=== PATIENT | male | born 1985 | race Caucasian/White ===

== ENCOUNTER 2016-09-11 22:49 | Emergency (ER) | payer MEDICAID | END 2016-09-12 01:56 | disposition home or self-care (01) | LOC: D.ER 22:49 | DX: M19.90 Unspecified osteoarthritis, unspecified site (principal); G89.29 Other chronic pain; I10 Essential (primary) hypertension; F43.10 Post-traumatic stress disorder, unspecified; F17.200 Nicotine dependence, unspecified, uncomplicated ==

== ENCOUNTER 2017-01-31 10:21 | Inpatient (IN) | payer MEDICAID ==
[~2017-01-31] VITALS: Ht 195.6 cm; Wt 184.5 kg
[2017-01-31 11:00] LABS: BASOPHILS 0.4 % (0-2); EOSINOPHILS 0.6 % (0-7); HEMATOCRIT 43.7 % (42.0-54.0); HEMOGLOBIN 14.8 g/dL (13.5-17.5); IMMATURE GRANULOCYTES 0.4 % (0-5); LYMPHOCYTES 11.7 % (15-50); MCH 31.8 pg (26.0-34.0); MCHC 33.9 g/dL (31.0-37.0); MCV 93.8 fL (80.0-100.0); MEAN PLATELET VOLUME 11.3 fL (7.4-10.4); MONOCYTES 7.1 % (2-11); NEUTROPHILS 79.8 % (40-80); PLATELET COUNT 177 10x3/uL (130-400); RBC 4.66 10x6/uL (4.20-6.10); RDW 13.5 % (11.5-14.5); WBC 8.1 10x3/uL (4.8-10.8)
[2017-01-31 11:22] LABS: ALBUMIN 3.3 g/dL (3.4-5.0); ANION GAP 14.8 mmol/L (8-16); BILIRUBIN - TOTAL 0.75 mg/dL (0.2-1.3); CALCIUM 8.8 mg/dL (8.5-10.1); CARBON DIOXIDE 24.5 mmol/L (21.0-32.0); CREATININE - SERUM 2.7 mg/dL (0.6-1.3); MAGNESIUM - SERUM 1.6 mg/dL (1.8-2.4); POTASSIUM - SERUM 4.3 mmol/L (3.5-5.1); PROTEIN - SERUM 6.6 g/dL (6.4-8.2)
[2017-01-31] MEDS ORDERED: MINIPRESS 5 MG C5 MG PO (14:20)
[2017-01-31] MEDS ORDERED: NEURONTIN600 MG PO (14:22)
[2017-01-31] MEDS ORDERED: LEXAPRO20 MG PO (14:23)
[2017-01-31] MEDS ORDERED: LISINOPRIL-HCTZ1 T13 PO (14:24)
[2017-01-31] MEDS ORDERED: THORAZINE25 MG PO (14:25)
[2017-01-31] MEDS ORDERED: GLIMEPIRIDE4 MG PO (14:26)
[2017-01-31] MEDS ORDERED: GLUCOPHAGE500 MG PO (14:27)
[2017-01-31 14:29] VITALS: BP 137/68; Ht 195.6 cm; Wt 184.5 kg
[2017-01-31 14:34] LABS: POTASSIUM - SERUM 3.5 mmol/L (3.5-5.1)
--- NOTE | 2017-01-31 14:57 | NUR ---
PT AOX4 RESP EVEN AND NONLABORED IV TO LEFT HAND PATENT AND INTACT PT DENIES NEEDS AT THIS TIME SRX2 BED AT LOWEST SETTING CALL LIGHT WITHIN REACH WILL CONTINUE TO MONITOR
[2017-01-31 15:23] LABS: HEMOGLOBIN A1C 11.6 % (4.8-6.0)
[2017-01-31 16:52] VITALS: BP 158/77
[2017-01-31 19:00] VITALS: BP 116/50
--- NOTE | 2017-02-01 02:00 | NUR ---
PT IN BED WITH NO DISTRESS AT THIS TIME. RESPIRATIONS ARE EVEN AND UNLABORED. SIDE RAILS X 2. BED IS LOW. CALL LIGHT IN REACH.
[2017-02-01 04:00] VITALS: BP 106/54
[2017-02-01 05:51] LABS: BASOPHILS 0.3 % (0-2); EOSINOPHILS 1.1 % (0-7); HEMOGLOBIN 13.4 g/dL (13.5-17.5); IMMATURE GRANULOCYTES 0.2 % (0-5); LYMPHOCYTES 15.9 % (15-50); MCH 31.8 pg (26.0-34.0); MCHC 34.4 g/dL (31.0-37.0); MCV 92.6 fL (80.0-100.0); MEAN PLATELET VOLUME 11.1 fL (7.4-10.4); MONOCYTES 10.3 % (2-11); NEUTROPHILS 72.2 % (40-80); PLATELET COUNT 179 10x3/uL (130-400); RBC 4.21 10x6/uL (4.20-6.10); RDW 13.5 % (11.5-14.5)
[2017-02-01 05:56] LABS: WBC 11.1 10x3/uL (4.8-10.8)
[2017-02-01 06:08] LABS: KETONE - SERUM NEGATIVE (NEGATIVE)
[2017-02-01 06:19] LABS: ALBUMIN 2.8 g/dL (3.4-5.0); ALKALINE PHOSPHATASE 53 U/L (46-116); ALT (SGPT) 72 U/L (10-68); CALCIUM 8.1 mg/dL (8.5-10.1); CARBON DIOXIDE 26.6 mmol/L (21.0-32.0); CHLORIDE - SERUM 97 mmol/L (98-107); CHOL - HDL RATIO 6.4 ratio (2.3-4.9); CHOLESTEROL, TOTAL 180 mg/dL (0-200); HDL CHOLESTEROL 28 mg/dL (32-96); POTASSIUM - SERUM 3.4 mmol/L (3.5-5.1); PROTEIN - SERUM 5.8 g/dL (6.4-8.2); SODIUM 131 mmol/L (136-145); UREA NITROGEN 17 mg/dL (7-18)
[2017-02-01 06:36] LABS: CALC OSMOLALITY 280 mosm/kg (275-300); GLUCOSE 378 mg/dL (74-106); TRIGLYCERIDE 717 mg/dL (30-200); eGFR NON AFRICAN AMERICAN 41 mL/min (90-120)
--- NOTE | 2017-02-01 07:45 | NUR ---
BED LOWEST POSITION, CALL LIGHTIN REACH, WILL CONTINUE TO MONITOR, DENIES NEEDS
[2017-02-01 08:27] VITALS: BP 105/63
--- NOTE | 2017-02-01 08:35 | NUR ---
ALERT IN HIGH ELIZABETH POSITION. NO SIGNS OF DISTRESS NOTED. NO NEEDS VOICED. SIDE RAILS UP X2. BED IN LOW POSITION. CALL LIGHT IN REACH.
[2017-02-01 11:39] VITALS: BP 118/56
--- NOTE | 2017-02-01 13:36 | NUR ---
NUTRITION MONITORING & EVAL PROVIDED PT WITH DM DIET EDU. DISCUSSED PORTION SIZES, LABEL READING, CHECKING BLOOD SUGAR. ANSWERED PT QUESTIONS. RD FOLLOWING
--- NOTE | 2017-02-01 13:50 | NUR ---
Patient Name: MC KEARNS Admission Status: ER Accout number: [id number] Admission Date: 02-01-2017 : 1985 Admission Diagnosis: Attending: MARKO Current LOS: 1 Anticipated DC Date: 02-03-2017 Planned Disposition: Home with Home Health Primary Insurance: [place] [employer] [facility] Discharge Planning Comments: CM MET WITH PATIENT REGARDING D/C NEEDS AND PLANS. PATIENT STATED HE LIVES ALONE AND HIS BROTHER CHECKS ON HIM AND HELPS IF NEEDED. PATIENT STATED HE HAS NO STEPS OR STAIRS AT HIS HOME. PATIENT IS INDEPENDENT WITH HIS CARE AND HAS A SHOWER CHAIR, WALKER, AND NEBULIZER AT HOME. PATIENT HAS BEEN GOING TO [facility] SEEING MARIE [facility]. PATIENT USES [facility] ON [address] PATIENT CHOSE [facility] DEPENDING ON HIS INSURANCE BEING ACCEPTED. CM WILL CONTINUE TO FOLLOW PATIENT WITH D/C NEEDS AND PLANS. PCP [facility] [address] - [phone] JUVE (BROTHER) [phone] Natural Resources Engineer: Dotty Cuellar Is the patient Alert and Oriented? Yes 0 * How many steps to enter\exit or inside your home? 0 0 * PCP [facility] 0 * Pharmacy [facility] [address] 0 * Preadmission Environment Home Alone 0 * ADLs Independent 0 * Equipment Nebulizer Shower Chair Walker 0 * List name and contact numbers for known caregivers / representatives who currently or will assist patient after discharge: JUVE KEARNS (BROTHER) [phone] 0 * Community resources currently utilized None 0 * Additional services required to return to the preadmission environment? Yes 0 * Can the patient safely return to the preadmission environment? Yes 0 * Has this patient been hospitalized within the prior 30 days at any hospital? No 0 Grand Total: 0
[2017-02-01 16:13] VITALS: BP 136/65
[2017-02-01 18:00] VITALS: BP 139/67
--- NOTE | 2017-02-01 23:09 | NUR ---
REC'D PATIENT ASLEEP IN BED. NO DISTRESS NOTED. WILL CONT TO MONITOR THROUGHOUT THE NIGHT. WILL ADMIN PM MEDS PRESCRIBED. BED LOW, LOCKED, CALL LIGHT IN REACH.
--- NOTE | 2017-02-01 23:10 | NUR ---
ADMIN PM MEDS PRECRIBED. ALERT AND ORIENTED X4. IS ASKING FOR SOME JELLO. DENIED PAIN AT THIS TIME. TAUGHT PATIENT ON WHEN TO CHECK HIS BLOOD SURGAR AT HOME. VERBALIZED UNDERSTANDING. WILL CONT TO TEACH ABT DIABETES THROUGHOUT THE NIGHT.
[2017-02-02 04:00] VITALS: BP 118/64
[2017-02-02 05:05] LABS: BASOPHILS 0.6 % (0-2); EOSINOPHILS 2.1 % (0-7); HEMATOCRIT 41.8 % (42.0-54.0); HEMOGLOBIN 14.2 g/dL (13.5-17.5); IMMATURE GRANULOCYTES 1.2 % (0-5); LYMPHOCYTES 31.1 % (15-50); MCH 31.3 pg (26.0-34.0); MCV 92.1 fL (80.0-100.0); MEAN PLATELET VOLUME 10.9 fL (7.4-10.4); MONOCYTES 10.2 % (2-11); NEUTROPHILS 54.8 % (40-80); PLATELET COUNT 181 10x3/uL (130-400); RBC 4.54 10x6/uL (4.20-6.10); RDW 13.3 % (11.5-14.5)
[2017-02-02 05:07] LABS: WBC 6.8 10x3/uL (4.8-10.8)
[2017-02-02 05:42] LABS: ALBUMIN 2.9 g/dL (3.4-5.0); ALKALINE PHOSPHATASE 52 U/L (46-116); BILIRUBIN - TOTAL 0.92 mg/dL (0.2-1.3); CARBON DIOXIDE 30.4 mmol/L (21.0-32.0); CHLORIDE - SERUM 99 mmol/L (98-107); POTASSIUM - SERUM 3.2 mmol/L (3.5-5.1); PROTEIN - SERUM 6.6 g/dL (6.4-8.2); SODIUM 136 mmol/L (136-145)
[2017-02-02 05:45] LABS: ALT (SGPT) 91 U/L (10-68); CALC OSMOLALITY 281 mosm/kg (275-300); CREATININE - SERUM 1.1 mg/dL (0.6-1.3); GLUCOSE 277 mg/dL (74-106); UREA NITROGEN 12 mg/dL (7-18); eGFR NON AFRICAN AMERICAN 82 mL/min (90-120)
--- NOTE | 2017-02-02 08:00 | NUR ---
WAS ABLE TO TAKE OWN BS THIS AM WITH VERBAL CUEING. TREATED WITH REGULAR INSULIN WHICH HE INJECTED HIMSELF WITH VERBAL CUEING.
--- NOTE | 2017-02-02 08:00 | NUR ---
AWAKE AND ALERT. ORIENTED X3. NO C/O AT THIS TIME. LUNGS ARE CLEAR BILATERALLY, NO COUGH NOTED. SKIN IS INTACT WITHOUT REDNESS. IV TO LEFT HAND IS PATENT WITHOUT REDNESS AT INSERTION SITE. DENIES NEEDS.
[2017-02-02 08:48] VITALS: BP 93/48
--- NOTE | 2017-02-02 11:03 | NUR ---
RESTING QUIETLY IN BED. DENIES NEEDS.
--- NOTE | 2017-02-02 12:32 | NUR ---
WAS ABLE TO CHECK HIS OWN SUGAR AND GIVE INSULIN WITH VERBAL CUEING. IV RESITED TO RIGHT UPPER ARM AFTER 2 ATTEMPTS WITH 22G. OLD IV D/C WITH CATHETER INTACT.
[2017-02-02 12:35] VITALS: BP 105/51
--- NOTE | 2017-02-02 16:30 | NUR ---
WAS ABLE TO DO OWN BLOOD SUGAR AND GAVE SELF SS INSULIN. DID WELL WITH ONLY ONE VERBAL CUE FROM STAFF.
[2017-02-02 17:02] VITALS: BP 114/66
--- NOTE | 2017-02-02 19:23 | NUR ---
ATE ALMOST ALL OF SUPPER. DENIES NEEDS. REQUESTED AND GIVNE ONE HYDROCODONE PO FOR C/O BACK AND RIGHT KNEE PAIN LEVEL 8. WILL MONITOR.
--- NOTE | 2017-02-02 20:30 | NUR ---
AWAKE WATCHING TV QUIETLY. NO COMPLAINTS VOICED.INSULIN ADMINSTATION TEACHING IN PROGRESS.CL IN REACH
[2017-02-03 00:04] VITALS: BP 113/56
--- NOTE | 2017-02-03 02:00 | NUR ---
PT IN BED WITH NO DISTRESS. RESPIRATIONS EVEN AND UNLABORED. SIDE RAILS X 2. BED LOW. CALL LIGHT IN REACH.
--- NOTE | 2017-02-03 02:38 | NUR ---
RESTING QUIETLY. NO DISTRESS NOTED. CL IN REACH.
[2017-02-03 04:00] VITALS: BP 150/69
--- NOTE | 2017-02-03 04:46 | NUR ---
AWAKE WITH NO COMPLAINTS. NO CHANGE IN ASSESSMENT.
[2017-02-03 06:04] LABS: BASOPHILS 0.6 % (0-2); HEMATOCRIT 40.5 % (42.0-54.0); HEMOGLOBIN 13.8 g/dL (13.5-17.5); IMMATURE GRANULOCYTES 0.6 % (0-5); LYMPHOCYTES 33.3 % (15-50); MCH 31.6 pg (26.0-34.0); MCHC 34.1 g/dL (31.0-37.0); MCV 92.7 fL (80.0-100.0); MEAN PLATELET VOLUME 10.9 fL (7.4-10.4); MONOCYTES 11.6 % (2-11); NEUTROPHILS 50.9 % (40-80); PLATELET COUNT 186 10x3/uL (130-400); RBC 4.37 10x6/uL (4.20-6.10); RDW 13.2 % (11.5-14.5); WBC 5.3 10x3/uL (4.8-10.8)
[2017-02-03 06:37] LABS: ALBUMIN 2.9 g/dL (3.4-5.0); ALKALINE PHOSPHATASE 51 U/L (46-116); BILIRUBIN - TOTAL 0.85 mg/dL (0.2-1.3); CARBON DIOXIDE 30.2 mmol/L (21.0-32.0); CHLORIDE - SERUM 99 mmol/L (98-107); POTASSIUM - SERUM 3.3 mmol/L (3.5-5.1); PROTEIN - SERUM 6.5 g/dL (6.4-8.2); SODIUM 137 mmol/L (136-145); THYROID STIMULATING HORMONE 1.56 uIU/mL (0.36-3.74); UREA NITROGEN 11 mg/dL (7-18); eGFR NON AFRICAN AMERICAN > 90 mL/min (90-120)
[2017-02-03 06:38] LABS: ALT (SGPT) 114 U/L (10-68); CALC OSMOLALITY 277 mosm/kg (275-300); GLUCOSE 196 mg/dL (74-106)
--- NOTE | 2017-02-03 08:14 | NUR ---
AWAKE AND ALERT. DID FS AND GAVE INSULIN PER SELF. NEEDED NO VERBAL CUES FROM STAFF. LUNGS ARE CLEAR BILATERALLY, NO COUGH NOTED. SKIN IS INTACT WITHOUT REDNESS. IV TO RIGHT UPPER ARM IS PATNET WITHOUT REDNESS AT INSERTION SITE. DENIES NEEDS. BREAKFAST SERVED IN ROOM.
[2017-02-03 08:39] VITALS: BP 119/82
--- NOTE | 2017-02-03 10:00 | NUR ---
UP TO SHOWER WITH SET UP ASSISTANCE. DENIES NEEDS.
--- NOTE | 2017-02-03 10:47 | NUR ---
REQUESTED AND GIVEN ONE HYDROCODONE PO FOR C/O BACK PAIN LEVEL 8. WILL MONITOR.
[2017-02-03] MEDS ORDERED: LANTUS INSULIN10 ML SC (11:23)
[2017-02-03] MEDS ORDERED: JANUVIA100 MG PO (11:24)
--- NOTE | 2017-02-03 12:00 | NUR ---
PULLED IV OUT WHILE IN THE SHOWER WITH CATHETER INTACT.
--- NOTE | 2017-02-03 13:25 | NUR ---
CM REASSESSMENT NOTE: PATIENT IS DISCHARGING HOME TODAY ([facility]) IS DRIVING HIM HOME. [facility] WAS NOTIFIED OF DISCHARGE
--- NOTE | 2017-02-03 14:26 | NUR ---
DISCHARGED TO HOME WITH FAMILY AMBULATORY. DISCHARGE INSTRUCTIONS GIVEN BOTH VERBALLY AND WRITTEN. ALL QUESTIONS ANSWERED. PATIENT VERBALIZED UNDERSTANDING OF SAME. NEEDED PRESCRIPTIONS ESCRIBED TO PHARMACY OF CHOICE.
== END 2017-02-03 14:28 | disposition home health service (06) | DRG 638 ==
LOC: D.ER 10:21 → OBSVTIME 12:12 → D.MS 12:12
PROVIDERS: Emergency Medicine; Family Medicine; ADMIT Family Medicine
DX: E11.649 Type 2 diabetes mellitus with hypoglycemia without coma (principal); E87.1 Hypo-osmolality and hyponatremia; N17.9 Acute kidney failure, unspecified; F43.10 Post-traumatic stress disorder, unspecified

== ENCOUNTER 2019-08-17 07:06 | Day surgery (SDC) | payer MEDICARE, MEDICAID ==
[2019-08-16 10:34] LABS: HEMATOCRIT 46.7 % (42.0-54.0); HEMOGLOBIN 15.9 g/dL (13.5-17.5); MCH 30.7 pg (26.0-34.0); MCV 90.2 fL (80.0-100.0); MEAN PLATELET VOLUME 9.8 fL (7.4-10.4); RBC 5.18 10x6/uL (4.20-6.10); RDW 13.6 % (11.5-14.5); WBC 13.8 10x3/uL (4.8-10.8)
[~2019-08-17] VITALS: Ht 195.6 cm; Wt 200.9 kg
[2019-08-17 06:07] VITALS: BP 171/87; Ht 195.6 cm; Wt 200.9 kg
[~2019-08-17 07:06] MED LIST: GLIMEPIRIDE4 MG PO; GLUCOPHAGE500 MG PO; JANUVIA100 MG PO; LANTUS INSULIN10 ML SC; LEXAPRO20 MG PO; LISINOPRIL-HCTZ1 T13 PO; MINIPRESS 5 MG C5 MG PO; NEURONTIN600 MG PO; THORAZINE25 MG PO; TRULICITY0.75 MG/0. SC
[2019-08-17] MEDS ORDERED: PERCOCET 10-321 EAC1 PO (09:14)
--- NOTE | 2019-08-17 15:45 | OP ---
PATIENT NAME: MC KEARNS MEDICAL RECORD: [id number] :[birth year] LOCATION:[facility] ADMISSION DATE: SURGEON: TE AMIN, DONATO HAIDER DATE OF OPERATION: 08/17/2019 PREOPERATIVE DIAGNOSIS: Anterior cruciate ligament tear of the right knee. POSTOPERATIVE DIAGNOSES: 1. Anterior cruciate ligament tear of the right knee. 2. Medial meniscus tear. 3. Lateral meniscus tear. 4. Grade II and III chondromalacia, posterior medial aspect of the tibia, generalized grade II. 5. Arthritis of the patellofemoral joint. PROCEDURES: 1. Arthroscopic anterior cruciate ligament reconstruction with allograft. 2. Arthroscopic partial lateral meniscectomy. 3. Arthroscopic partial medial meniscectomy. SURGEON: Donato Tiwari MD COOK HELPER MEAT: SARITAH Haynes INTRAOPERATIVE COMPLICATIONS: None. SUMMARY OF PATHOLOGIC FINDINGS: Consistent with the preoperative diagnosis, the patient had full thickness anterior cruciate ligament tear along with a complex tear of the posterior horn of the medial meniscus, posterior medially and the complex tear of the posterior horn of the lateral meniscus more laterally as well as chondromalacia as described above. OPERATIVE SUMMARY IN DETAIL: After obtaining the appropriate preoperative orthopedic surgery consent as well as anesthetic consultation, evaluation and clearance, the patient was brought to the operating room and placed on the operating table in a supine position. After general laryngeal mask was administered, tourniquet was placed about the proximal aspect of the right lower extremity. The right lower extremity was prepped and draped in routine sterile fashion. The leg was elevated and exsanguinated, tourniquet was inflated to 350 mmHg. After the appropriate timeout was taken and agreed upon by all, inferolateral portal was created followed by superior medial portal and inferomedial portal. Diagnostic arthroscopy revealed the above findings. Attention was first turned to debridement of the ACL stump as well as a large notchplasty given this gentleman's very large body frame and A type notch. After notchplasty was performed, attention was turned to the medial aspect of the knee where a complex tear of the posterior horn of the medial meniscus was taken down using the resector and the knee was then placed in a [id number] position and the lateral portion of the lateral meniscus was debrided back to the lateral meniscal stable elements with good retention of both medial and lateral menisci without significant deficit. At this point, the tibial tunnel was drilled using the [employer] guide system and the baton reamer. Having completed this, the femoral tunnel was likewise reamed using the low profile 11-mm reamer to approximately 30 mm of depth. The button was then passed using the [employer] TightRope system; however, in seating the TightRope, the button broke off. However, the bone block was successfully inside the femoral tunnel. OPERATIVE REPORT [id number] MC KEARNS GERARDO Therefore, a 7 mm BioComposite screw was used for femoral fixation with excellent fixation. After ranging the knee several times and checking the fixation several times arthroscopically, the distal portion of the anterior cruciate ligament allograft was secured with a bicortical 6.5 mm post from [employer]. Having completed this, the post was seated, again the knee was ranged. At this point, the wounds and arthroscopic portals were closed in routine fashion by Antwon Gardner. Sterile dressings were applied. Tourniquet was deflated. The patient was awakened and taken to the recovery room in stable condition. All final needle and sponge counts were correct. TRANSINT:[id number] Voice Confirmation ID: [id number] DOCUMENT ID: [id number] TE AMIN, DONATO HAIDER at 1545 CC: [id number] DICTATION DATE: 08/17/19918 SUPPLY CRIB ATTENDANT: 08/17/19 [facility] 08/17/19 [id number] [place] [address]
== END 2019-08-17 11:25 | disposition home or self-care (01) ==
LOC: D.OPS 07:06 → D.PAN 07:30 → D.OPS 08:30 → D.PAN 08:30 → D.OPS 11:25
PROVIDERS: Anesthesiology; ATTEND Orthopaedic Surgery
DX: S83.511A Sprain of anterior cruciate ligament of right knee, initial encounter (principal); X58.XXXA Exposure to other specified factors, initial encounter; S83.281A Other tear of lateral meniscus, current injury, right knee, initial encounter; S83.241A Other tear of medial meniscus, current injury, right knee, initial encounter; M94.28 Chondromalacia, other site; M13.88 Other specified arthritis, other site; F10.921 Alcohol use, unspecified with intoxication delirium; Z98.890 Other specified postprocedural states

== ENCOUNTER → 2020-03-06 08:10 | Outpatient (CLI) | payer MEDICARE, MEDICAID ==
[2019-08-17 06:07] VITALS: BMI 52.6
[~2020-03-06 08:10] MED LIST changes: +PERCOCET 10-321 EAC1 PO
== END | disposition home or self-care (01) ==
LOC: D.US 08:00
PROVIDERS: ATTEND Nurse Practitioner Family
DX: R74.8 Abnormal levels of other serum enzymes (principal)